=== PATIENT | female | born 1945 | race Caucasian/White ===

== ENCOUNTER 2025-01-01 13:23 | Outpatient (CLI) | payer MEDICARE ==
--- NOTE | 2025-01-01 22:36 | CONSULTATION ---
DATE OF CONSULTATION: 01/01/2025 DICTATING PHYSICIAN: Radha Ricci M.S., [facility]-CRIB CLERK MODIFIED BARIUM SWALLOW STUDY REPORT REFERRING PHYSICIAN: Dr. Jennifer Burton. DATE OF SERVICE: 01/01/2025 HISTORY OF PRESENT ILLNESS: The patient is an 79-year-old female and consents to this evaluation. The patient's niece and nephew were present for this evaluation. History was obtained from the patient, the patient's niece and nephew, and medical records. The patient reports symptoms of dysphagia that have been occurring for the past 3-4 years. She notes that it feels as if there is a flap and that closes off her airway when she is eating and drinking and that this occurs a couple of times per week. The patient's nephew has noticed that she seems to have the most difficulty with fruits with skins and so she has started to avoid these food items. The patient has a history of cerebral infarction in 2022, diagnosis of Parkinson's disease, and a heart attack in 01/2019 with a heart valve replacement a few days later. The patient has not had speech therapy in the past with the exception of having received some speech therapy when she was in a rehabilitation center following her mitral valve replacement. CURRENT DIET: The patient is currently on a regular texture thin liquid diet. She has stopped eating fruit with skins due to the difficulty with this item. MEDICATIONS: Eliquis 5 mg 1 tablet orally twice daily, nitrofurantoin macrocrystals 100 mg 1 capsule at bedtime with food or milk orally daily, atorvastatin calcium 20 mg 1 tablet once daily orally, oxybutynin chloride ER 10 mg 1 tablet once daily orally, spironolactone 25 mg 1 tablet once daily orally, lisinopril 20 mg 1 tablet once daily orally, furosemide 40 mg 1 tablet once daily orally, carbidopa/levodopa 25/100 mg 2 tablets orally t.i.d., metoprolol 50 mg once daily orally, A20 cranberry 25,000 mg 2 tablets once daily orally, vitamin D3 5000 IU once daily orally. PARAMETERS: The patient is seated in a lateral 90-degree view and administered the usual protocol of thin and nectar thick liquids, puree and solid consistencies, as well as self-regulated boluses of thin liquids from the cup. RESULTS: In the oral stage of the swallow, lingual strength was moderately reduced. The patient utilized a lingual rocking motion in order to propel the bolus from the anterior to the posterior oral cavity. The patient presented with delayed swallow initiation for the nectar thick liquid and puree consistencies with the bolus residing in the oral cavity for 10 seconds for the nectar thick liquid and 9 seconds for the puree. Following the initial swallow of boluses, there was a mild to moderate oral residue. It was noted that the patient did not utilize any spontaneous secondary swallows. In the pharyngeal stage of the swallow, tongue base retraction was moderately reduced. Swallow initiation was delayed to the level of the piriformis for the 1 mL and 3 mL thin liquid bolus and to the level of the vallecula for the 5 mL thin liquid bolus. Anterior movement of the posterior pharyngeal wall was observed. Elevation of the hyothyroid complex was accomplished with full range of motion for epiglottic inversion and anterior and superior movement of the hyoid. There was a mild to moderate pharyngeal residue at the level of the vallecula for some swallows, but not all. PES opening was within functional limits. In terms of airway safety, the patient demonstrated penetration on the 3 mL thin liquid bolus due to the bolus passing. The passing due to the bolus reaching the level of the piriformis before a swallow was initiated. ANTERIOR, POSTERIOR VIEW: In the AP plane, the bolus split symmetrically between the piriform sinuses and there was no proximal movement noted. IMPRESSION: The patient demonstrates with what appears to be a moderate oropharyngeal stage swallowing disorder characterized by moderately reduced lingual strength and tongue base retraction as well as slowed initiation of the swallow and delayed swallow initiation to the level of the vallecula for 5 mL thin liquid and the level of the piriformis for 1 mL and 3 mL thin liquid boluses. DIAGNOSES: 1. R13.12 dysphagia oropharyngeal phase. 2. G 20.81 idiopathic Parkinson's disease. 3. 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 PATIENT EDUCATION: Immediately following modified barium swallow study, the patient and her family were able to view the results. The normal anatomy of the swallowing mechanism was revealed. The patient was able to see how the current status of the oral motor and swallowing mechanism decreases her ability to swallow normally. She was educated on a recommendation for speech therapy to strengthen the muscles involved in swallowing and agreed to participate at this time. It should also be noted that the patient presented with a very low volume of voice and so it would be recommended that she be seen for voice therapy as well. The patient was also educated on utilizing a double swallow at this time for her food and liquid. RECOMMENDATIONS: 1. When it is recommended that the patient receive concomitant speech/voice and swallowing therapy, CPT 45632 and 36892 one time weekly for 12 weeks to improve the strength of the swallowing musculature and strength of voice to ensure airway safety protection and prevent aspiration. 2. It is recommended that the patient utilize double swallows at this time for her boluses. LONG-TERM GOALS: The patient will maintain adequate hydration/nutrition with optimum safety and efficiency of swallow function on p.o. intake with overt signs and symptoms of aspiration decreased to once biweekly for the highest possible diet level. PROGNOSIS: Prognosis for the patient is good in terms of family support. FUNCTIONAL ORAL INTAKE: The FOIS was administered to establish and document a change in the functional eating activities of this patient over time. This is a 7-point scale with 1 indicating no oral intake and totally tube dependent and 7 indicating total oral intake with no restrictions. This patient received a 6 which indicates she has a total oral diet with multiple consistencies without special preparation, but with specific food limitations and precautions. G-CODE: [id number]. Thank you very much for asking me to participate in the care of this kind patient. If you do have any questions regarding this evaluation or recommendations, please do not hesitate to contact me at [phone]. During this examination, 5 minutes 22 seconds of fluoroscopy time and 35.77 CAK mGy were utilized. Radha Ricci M.S., [facility]-CRIB CLERK TID: [id number] RECEIPT: [id number] ROCKY/ALICE
== END 2025-01-01 23:59 | disposition home or self-care (01) ==
LOC: RAD 13:23
PROVIDERS: ATTEND Psychiatry & Neurology Neurology
DX: R13.10 Dysphagia, unspecified (principal); G20.C Parkinsonism, unspecified
CPT/HCPCS: 74230